=== PATIENT | male | born 1985 | race Caucasian/White ===

== ENCOUNTER 2017-02-15 11:10 | Emergency (ER) | payer SELFPAY ==
[2017-02-15] MEDS ORDERED: Lidocaine 1% 20 ML MDV INJECT ONE (11:39)
[2017-02-15] MEDS ORDERED: Bacitracin Oint 1 GM U/D Packet TOP ONE (11:39)
--- NOTE | 2017-02-15 11:45 | EDM.PDOC ---
ED HPI Skin/Rash - General Chief Complaint: Laceration Stated Complaint: HURT FINGER WORKING ON VEHICLE Time Seen by Provider: 02/15/17 11:24 - History of Present Illness INITIAL COMMENTS - FREE TEXT/NARRATIVE: HISTORY AND PHYSICAL: History of present illness: The patient is a healthy 32-year-old male who is up-to-date on his tetanus shot and presents with complaints of a laceration to his right fourth digit that occurred last evening about 9 PM. Patient states he was working on a car when a piston squeezed his finger pinched the skin causing a laceration. He did local wound care and wanted to be seen in the clinic today but they are not open so he came here. He has had no discrete pain in the area but is concerned about the wound as he uses his hands for work. He has no inability to flex and extend at the fingers and has no proximal hand or extremity complaints. Patient is right-hand dominant. Review of systems: As per history of present illness and below otherwise all systems reviewed and negative. Past medical history: As per history of present illness and as reviewed below otherwise noncontributory. Surgical history: As per history of present illness and as reviewed below otherwise noncontributory. Social history: No reported history of drug or alcohol abuse. Family history: As per history of present illness and as reviewed below otherwise noncontributory. Physical exam: General: Well-developed well-nourished male who is nontoxic speaking clearly and easily in the ER and vital signs are noted by me HEENT: Atraumatic, normocephalic, negative for conjunctival pallor or scleral icterus, mucous membranes moist, throat clear, neck supple, nontender, trachea midline. Lungs: Clear to auscultation, breath sounds equal bilaterally, chest nontender. Heart: S1S2, regular rate and rhythm no overt murmurs Abdomen: Soft, nondistended, nontender. NABS Pelvis: Stable nontender. Genitourinary: Deferred. Rectal: Deferred. Extremities: Atraumatic throughout bilateral hands and right upper extremity with the exception of the right fourth digit. As the palmar surface near the PIP flexure there is a 2.25 cm laceration which is irregular and has subcutaneous tissue the edges. The wound edges are somewhat macerated and the integrity is somewhat compromised but there is no gross swelling bony tenderness deformities or erythema/ecchymosis. The patient has full flexion against resistance with the superficialis and profundus tendons. There is no active bleeding appreciated and no foreign bodies are palpated or visualized. The legs are, negative for cords or calf pain. Neurovascular unremarkable. Neuro: Awake, alert, oriented. Cranial nerves II through XII unremarkable. Cerebellum unremarkable. Motor and sensory unremarkable throughout. Exam nonfocal. Diagnostics: The patient was offered an x-ray of the finger as there was a squeezing/ crushing injury that triggered the laceration but he has refused this x-ray as he is self pay. He is understanding of my concerns about a potential open fracture and he accepts those. I will give him Keflex for home Therapeutics: Lidocaine without epinephrine for digital block, bacitracin wound care and splint Procedure note: After the procedure was explained to the patient and the wound was cleaned by nursing, 1% lidocaine without epinephrine was infused in a digital block fashion. The area was prepped and draped in sterile fashion and subcutaneous tissue was mildly debrided and the wound is explored without any evidence of foreign bodies. The skin edges were gently reapproximated using a total number of# 4 sutures of 4-0 nylon. The sutures were simple interrupted. There were no complications and the patient tolerated the procedure well. Bacitracin tube gauze and a splint were applied Impression: Crush laceration to right fourth digit Definitive disposition and diagnosis as appropriate pending reevaluation and review of above. - Related Data Allergies Allergy/AdvReac Type Severity Reaction Status Date / Time No Known Allergies Allergy Verified 02/15/17 11:22 Home Meds: Ambulatory Orders Medication Instructions Recorded Confirmed . [No Known Home Meds] 02/15/17 02/15/17 Past Medical History - Past Surgical History HEENT Surgical History: Reports: Other (see below) Other HEENT Surgeries/Procedures: jaw and nose Social & Family History - Tobacco Use Smoking Status *Q: Current Every Day Smoker Years of Tobacco use: 17 Packs/Tins Daily: 0.5 - Recreational Drug Use Recreational Drug Use: No ED ROS GENERAL - Review of Systems Review Of Systems: ROS reveals no pertinent complaints other than HPI. ED EXAM, SKIN/RASH Exam: See Below (See dictation) Course - Vital Signs Last Recorded V/S: Last Vital Signs Temp 36.6 C 02/15/17 11:22 Pulse 97 02/15/17 11:22 Resp 16 02/15/17 11:22 BP 138/89 02/15/17 11:22 Pulse Ox 96 02/15/17 11:22 - Orders/Labs/Meds Meds: Medications Discontinued Medications Generic Name Dose Route Start Last Admin Trade Name Mukesh PRN Reason Stop Dose Admin Bacitracin 1 dose 02/15/17 11:39 02/15/17 11:45 Bacitracin Oint 1 Gm TOP 02/15/17 11:40 1 dose ONETIME ONE Administration Lidocaine HCl 20 ml 02/15/17 11:39 02/15/17 11:45 Xylocaine 1% INJECT 02/15/17 11:40 20 ml ONETIME ONE Administration Departure - Departure Time of Disposition: 12:18 Disposition: Home, Self-Care 01 Condition: good Clinical Impression: Laceration of finger of right hand Qualifiers: Encounter type: initial encounter Qualified Code(s): S61.219A - Laceration without foreign body of unspecified finger without damage to nail, initial encounter Referrals: PCP,None [Primary Care Provider] - Forms: ED Department Discharge Additional Instructions: The following information is given to patients seen in the emergency department who are being discharged to home. This information is to outline your options for follow-up care. We provide all patients seen in our emergency department with a follow-up referral. The need for follow-up, as well as the timing and circumstances, are variable depending upon the specifics of your emergency department visit. If you don't have a primary care physician on staff, we will provide you with a referral. We always advise you to contact your personal physician following an emergency department visit to inform them of the circumstance of the visit and for follow-up with them and/or the need for any referrals to a consulting specialist. The emergency department will also refer you to a specialist when appropriate. This referral assures that you have the opportunity for followup care with a specialist. All of these measure are taken in an effort to provide you with optimal care, which includes your followup. Under all circumstances we always encourage you to contact your private physician who remains a resource for coordinating your care. When calling for followup care, please make the office aware that this follow-up is from your recent emergency room visit. If for any reason you are refused follow-up, please contact the [facility] emergency department at and ask to speak to the emergency department charge nurse. [address] [facility] Primary care- Internal Medicine and Family [facility] [address] [place] [id number] [facility] Specialty clinic-Plastic Surgery and Hand Surgery Professional Building [address] [place] [id number] Please keep dressing and splint on for the next 24 hours and then removed and cleanse with mild soap and water, pat dry. Apply bacitracin or Neosporin for the next 2 days only. Please try to leave the wound open to air as much as possible and cover only with gauze if need be. Avoid Band-Aid use. Please return to ER for suture removal in 7 days or followup with our hand specialists for further care and evaluation. Take antibiotics, Keflex, as prescribed. Return to ER sooner as needed and as discussed
[2017-02-15 12:36] VITALS: BP 141/81
== END 2017-02-15 12:36 | disposition home or self-care (01) ==
LOC: MW.ED 11:10
DX: S61.214A Laceration without foreign body of right ring finger without damage to nail, initial encounter (principal); F17.210 Nicotine dependence, cigarettes, uncomplicated; W45.8XXA Other foreign body or object entering through skin, initial encounter
CPT/HCPCS: 12001; 99282; 99283